=== PATIENT | male | born 1960 | race Caucasian/White ===

== ENCOUNTER 2016-07-02 11:45 | Inpatient (IN) | payer SELFPAY ==
[2016-07-02] MEDS ORDERED: Lasix 40 MG/4 ML IV ONE (11:52)
[2016-07-02] MEDS ORDERED: ROCEPHIN 1 Gm-D5w 50 ml Bag** 50 ML IV ONE ×2 (11:52→12:03)
[2016-07-02] MEDS ORDERED: DUONEB 0.5-3 MG/3 ml Neb IH ONE ×3 (11:52→16:10)
[2016-07-02] MEDS ORDERED: solu-MEDROL 125 MG IV ONE (11:52)
[2016-07-02] MEDS ORDERED: Sodium Chloride 0.9% 1000 ML 1,000 ML IV STA ×2 (11:52→15:11)
--- NOTE | 2016-07-02 12:00 | ERPHSYRPT ---
- History of Present Illness Time Seen by Provider: 07/02/16 11:52 Source: patient, family Exam Limitations: clinical condition (dyspnea) Physician History: 1 week history of progressive shortness of breath a and cough; decreased appetite and not eating or drinking; no travel; he has been exposed to other peopl with respiratory problems with unknown diagnosis; no vomiting; some muscle aches; nonproductive cough; history of emphysema Timing/Duration: today (Worse), week(s) (1 onset) Activities at Onset: rest Severity of Dyspnea-Max: severe Severity of Dyspnea-Current: severe Possible Cause: occasional episodes Modifying Factors: Improves With: coughing, deep breath Associated Symptoms: constant, cough, chest pain/discomfort, fever, loss of appetite, wheezing, weakness, chills, heart racing, painful breathing, productive cough International travel in last 2 weeks: No Allergies/Adverse Reactions: azithromycin [From scoo mobility] Adverse Reaction (Verified 07/02/16 11:56) Home Medications: Albuterol 2.5 mg/3 ml Neb [Proventil 2.5 mg/3 ml Neb] 1 neb IH Q4H [History] Fluticasone/Salmeterol 500/50* [Advair 500-50 Diskus] 1 puff IH BID 09/17/15 [History] Budesonide/Formoterol Fumarate [Symbicort 160-4.5 Mcg Inhaler] 10.2 gm IH BID [History] Hx Tetanus, Diphtheria Vaccination/Date Given: Yes Hx Influenza Vaccination/Date Given: No Hx Pneumococcal Vaccination/Date Given: No - Review of Systems Constitutional: Fever, Chills, Weakness, Weight Loss Eyes: No Symptoms Ears, Nose, & Throat: Throat Pain, Painful Swallowing, No Ear Pain, No Epistaxis , No Mouth Pain Respiratory: Cough, Dyspnea, Dyspnea on Exertion (MCCRARY), Wheezing Cardiac: Chest Pain (with cough and respirations), Palpitations, No Edema, No Syncope Abdominal/Gastrointestinal: No Abdominal Pain, No Nausea, No Vomiting, No Diarrhea Genitourinary Symptoms: No Symptoms Musculoskeletal: Arthralgias, Myalgias, No Neck Pain, No Fall, No Joint Redness Skin: No Symptoms Neurological: No Symptoms Psychological: No Symptoms Endocrine: No Symptoms Hematologic/Lymphatic: No Symptoms Immunological/Allergic: No Symptoms - Past Medical History Pertinent Past Medical History: Yes Neurological History: No Pertinent History ENT History: No Pertinent History Cardiac History: No Pertinent History Respiratory History: Bronchitis, COPD Endocrine Medical History: No Pertinent History Musculoskeletal History: No Pertinent History GI Medical History: No Pertinent History History: No Pertinent History Psycho-Social History: No Pertinent History Male Reproductive Disorders: No Pertinent History Other Medical History: BREATHES IN A LOT OF WELDING FUMES-HAS NOT BEEN TO THE DOCTOR FOR OVER 25 YEARS - Past Surgical History Past Surgical History: No Neuro Surgical History: No Pertinent History Cardiac: No Pertinent History Respiratory: No Pertinent History Gastrointestinal: No Pertinent History Genitourinary: No Pertinent History Musculoskeletal: No Pertinent History Male Surgical History: No Pertinent History - Social History Smoking Status: Current every day smoker How long have you smoked: YRS Exposure to second hand smoke: Yes Alcohol Use: None Drug Use: none Patient Lives Alone: No Significant Family History: heart disease, hypertension - Nursing Vital Signs Nursing Vital Signs: Initial Vital Signs Temperature 104.4 F Temperature Source Rectal Pulse Rate 122 Respiratory Rate 20 Blood Pressure [] 110/54 Pain Intensity 0 - Physical Exam General Appearance: severe distress (respiratory), alert, anxiety, thin Eye Exam: PERRL/EOMI, other (Vision okay), No photophobia Ears, Nose, Throat Exam: hearing grossly normal, normal pharynx (Inflamed pharynx), pharyngeal erythema, No normal ENT inspection (Very dry mucous membranes) Neck Exam: normal inspection, non-tender, supple, full range of motion, No meningismus, No carotid bruit, No JVD, No lymphadenopathy (R) Respiratory Exam: respiratory distress, airway intact, diminished breath sounds , accessory muscle use, crackles/rales, rhonchi, wheezing, No normal breath sounds, No chest tenderness, No lungs clear, No pleural rub Cardiovascular/Chest Exam: regular rate/rhythm, normal peripheral pulses, tachycardia (132), No murmur, No edema, No JVD, No friction rub Abdominal/Gastrointestinal Exam: soft, normal bowel sounds, No tenderness, No guarding, No rebound, No organomegaly Rectal Exam: deferred Extremity Exam: non-tender, normal range of motion, normal inspection, no calf tenderness, no pedal edema Peripheral Pulses Exam: carotid (R): 4+, carotid (L): 4+, femoral (R): 4+, femoral (L): 4+, dorsalis-pedis (R): 3+, dorsalis-pedis (L): 3+ Neurologic Exam: alert, oriented x 3, cooperative, 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 mass), Pneumonia (righ lateral lung field), Other ( copd with blebs) - CT Exams Chest CT Interpretation: Tele-radiologist Report, No PE, Pneumonia Ordered Tests: Active Orders 24 hr Category Date Time Status K 9 Police Officer STAT Care 07/02/16 11:52 Active EKG-ER Only STAT Care 07/02/16 11:52 Active IV Insertion STAT Care 07/02/16 11:52 Active Pulse Oximetry (ED) STAT Care 07/02/16 11:52 Active Rectal Temperature STAT Care 07/02/16 11:52 Active CHEST 1 VIEW (PORTABLE) Stat Exams 07/02/16 11:53 Completed CHEST WITH CONTRAST [CT] Stat Exams 07/02/16 12:48 Completed BLOOD CULTURE Stat Lab 07/02/16 12:10 Received CBC W DIFF Stat Lab 07/02/16 12:00 Completed CMP Stat Lab 07/02/16 12:00 Completed CULTURE, THROAT Stat Lab 07/02/16 12:10 Received CULTURE,SPUTUM Stat Lab 07/02/16 12:27 Received CULTURE,URINE Stat Lab 07/02/16 11:53 Ordered D-DIMER QUANTITATION Stat Lab 07/02/16 12:00 Completed Lactic Acid Urgent Lab 07/02/16 12:15 Completed MAGNESIUM Stat Lab 07/02/16 12:00 Completed Manual Differential NC Stat Lab 07/02/16 12:00 Completed NT PRO BNP Stat Lab 07/02/16 12:00 Completed PROTIME WITH INR Stat Lab 07/02/16 12:00 Completed STREP SCREEN-BETA A Stat Lab 07/02/16 12:10 Completed TROPONIN Stat Lab 07/02/16 12:00 Completed UA W/ MICROSCOPIC Stat Lab 07/02/16 11:53 Completed Peak Expiratory Flow Rate ONCE RT 07/02/16 11:52 Completed Respiratory Nebulizer STAT RT 07/02/16 11:54 Completed Medication Summary Discontinued Medications Generic Name Dose Route Start Last Admin Trade Name Freq PRN Reason Stop Dose Admin Acetaminophen 975 mg 07/02/16 12:22 07/02/16 13:21 Feverall 650 Mg NM 07/02/16 12:23 975 mg STAT ONE Administration Acetaminophen Confirm 07/02/16 12:25 Feverall 650 Mg Administered 07/02/16 12:26 Dose 650 mg .ROUTE .STK-MED ONE Acetaminophen Confirm 07/02/16 12:26 Feverall 325 Mg Administered 07/02/16 12:27 Dose 325 mg .ROUTE .STK-MED ONE Albuterol/Ipratropium 3 ml 07/02/16 11:52 07/02/16 12:25 Duoneb 0.5-3 Mg/3 Ml Neb IH 07/02/16 11:53 3 ml STAT ONE Administration Albuterol/Ipratropium Confirm 07/02/16 12:19 Duoneb 0.5-3 Mg/3 Ml Neb Administered 07/02/16 12:20 Dose 3 ml IH .STK-MED ONE Enoxaparin Sodium 68 mg 07/02/16 12:52 07/02/16 13:24 Enoxaparin Sodium SQ 07/02/16 12:53 68 mg STAT ONE Administration Enoxaparin Sodium Confirm 07/02/16 13:22 Enoxaparin Sodium Administered 07/02/16 13:23 Dose 80 mg SQ .STK-MED ONE Furosemide 40 mg 07/02/16 11:52 07/02/16 12:10 Lasix 40 Mg/4 Ml IV 07/02/16 11:53 40 mg STAT ONE Administration Furosemide Confirm 07/02/16 12:02 Lasix 40 Mg/4 Ml Administered 07/02/16 12:03 Dose 40 mg .ROUTE .STK-MED ONE Ceftriaxone Sodium/Dextrose 50 mls @ 100 mls/hr 07/02/16 11:52 07/02/16 12:11 Rocephin 1 Gm-D5w 50 Ml Bag IV 07/02/16 12:21 100 mls/hr STAT ONE Administration Sodium Chloride 1,000 mls @ 999 mls/hr 07/02/16 11:52 07/02/16 12:12 Sodium Chloride 0.9% 1000 Ml IV 07/02/16 12:52 999 mls/hr .Q1H1M STA Administration Sodium Chloride Confirm 07/02/16 12:03 Sodium Chloride 0.9% 1000 Ml Administered 07/02/16 12:04 Dose 1,000 mls @ ud .ROUTE .STK-MED ONE Ceftriaxone Sodium/Dextrose Confirm 07/02/16 12:03 Rocephin 1 Gm-D5w 50 Ml Bag Administered 07/02/16 12:04 Dose 50 mls @ ud IV .STK-MED ONE Methylprednisolone Sodium Succinate 125 mg 07/02/16 11:52 07/02/16 12:12 Solu-Medrol 125 Mg IV 07/02/16 11:53 125 mg STAT ONE Administration Methylprednisolone Sodium Succinate Confirm 07/02/16 12:02 Solu-Medrol 125 Mg Administered 07/02/16 12:03 Dose 125 mg .ROUTE .STK-MED ONE Lab/Rad Data: Laboratory Result Diagrams 07/02/16 12:00 07/02/16 12:00 Laboratory Results 07/02/16 07/02/16 07/02/16 Range/Units 12:15 12:10 12:00 WBC (4.0-10.5) K/mm3 RBC (4.1-5.6) M/mm3 Hgb (12.5-18.0) gm/dl Hct (42-50) % MCV (78-100) fl MCH (26-32) pg MCHC (32-36) g/dl RDW (11.5-14.0) % Plt Count (150-450) K/mm3 MPV (6-9.5) fl Gran % (36.0-66.0) % Lymphocytes % (24.0-44.0) % Monocytes % (0.0-12.0) % Eosinophils % (0.00-5.0) % Basophils % (0.0-0.4) % Segmented Neutrophils (36.-66.) % Lymphocytes (Manual) (24-44) % Monocytes (Manual) (0.0-12.0) % Basophils # (0-0.4) Differential Comment Toxic Granulation Platelet Estimate (NORMAL) Anisocytosis INR 1.58 (0.8-3.0) D-Dimer 1.676 H* (0.00-0.49) mg/L Sodium (136-145) mEq/L Potassium (3.5-5.1) mEq/L Chloride (98-107) mEq/L Carbon Dioxide (21-32) mEq/L Anion Gap (5-15) MEQ/L BUN (9-20) mg/dL Creatinine (0.55-1.30) mg/dl Estimated GFR ML/MIN Glucose (70-110) MG/DL Lactic Acid 3.1 H (0.4-2.0) Calcium (8.5-10.1) mg/dL Magnesium (1.8-2.4) mg/dL Total Bilirubin (0.2-1.0) mg/dL AST (15-37) U/L ALT (12-78) U/L Alkaline Phosphatase (46-116) U/L Troponin I (0.000-0.056) ng/ml NT-Pro-B Natriuret Pep (0-125) pg/ml Serum Total Protein (6.4-8.2) gm/dL Albumin (3.4-5.0) g/dL Ur Collection Type Urine Color (YELLOW) Urine Appearance (CLEAR) Urine pH (5-6) Ur Specific [place] (1.005-1.025) Urine Protein (Negative) Urine Glucose (UA) (NEGATIVE) mg/dL Urine Ketones (NEGATIVE) Urine Nitrite (NEGATIVE) Urine Bilirubin (NEGATIVE) Urine Urobilinogen (0-1) mg/dL Urine WBC (Auto) (NEGATIVE) Urine RBC (Auto) (0-5) Arsh/ul Urine Microscopic RBC (0-2) /HPF Urine Microscopic WBC (0-5) /HPF Ur Epithelial Cells (FEW) /HPF Urine Bacteria (NEGATIVE) /HPF Streptococcus Screen NEGATIVE (Negative) Resp Infection Panel (Negative) Specimen Received 07/02/16 07/02/16 07/02/16 Range/Units 12:00 12:00 11:53 WBC 22.3 H (4.0-10.5) K/mm3 RBC 5.15 (4.1-5.6) M/mm3 Hgb 11.4 L (12.5-18.0) gm/dl Hct 36.6 L (42-50) % MCV 71.1 L (78-100) fl MCH 22.1 L (26-32) pg MCHC 31.1 L (32-36) g/dl RDW 18.0 H (11.5-14.0) % Plt Count 461 H (150-450) K/mm3 MPV 9.1 (6-9.5) fl Gran % 95.9 H (36.0-66.0) % Lymphocytes % 1.5 L (24.0-44.0) % Monocytes % 2.6 (0.0-12.0) % Eosinophils % 0.0 (0.00-5.0) % Basophils % 0.0 (0.0-0.4) % Segmented Neutrophils 97 H (36.-66.) % Lymphocytes (Manual) 2 L (24-44) % Monocytes (Manual) 1 (0.0-12.0) % Basophils # 0.01 (0-0.4) Differential Comment ABNORMAL Toxic Granulation 1+ Platelet Estimate NORMAL (NORMAL) Anisocytosis 1+ INR (0.8-3.0) D-Dimer (0.00-0.49) mg/L Sodium 127 L (136-145) mEq/L Potassium 3.6 (3.5-5.1) mEq/L Chloride 85 L (98-107) mEq/L Carbon Dioxide 30.3 (21-32) mEq/L Anion Gap 14.9 (5-15) MEQ/L BUN 15 (9-20) mg/dL Creatinine 1.13 (0.55-1.30) mg/dl Estimated GFR > 60 ML/MIN Glucose 139 H (70-110) MG/DL Lactic Acid (0.4-2.0) Calcium 10.0 (8.5-10.1) mg/dL Magnesium 1.9 (1.8-2.4) mg/dL Total Bilirubin 0.3 (0.2-1.0) mg/dL AST 37 (15-37) U/L ALT 10 L (12-78) U/L Alkaline Phosphatase 187 H (46-116) U/L Troponin I < 0.017 (0.000-0.056) ng/ml NT-Pro-B Natriuret Pep 551 H (0-125) pg/ml Serum Total Protein 9.4 H (6.4-8.2) gm/dL Albumin 2.3 L (3.4-5.0) g/dL Ur Collection Type VOID Urine Color YELLOW (YELLOW) Urine Appearance CLEAR (CLEAR) Urine pH 6.0 (5-6) Ur Specific [place] 1.010 (1.005-1.025) Urine Protein 30 (Negative) Urine Glucose (UA) NEGATIVE (NEGATIVE) mg/dL Urine Ketones NEGATIVE (NEGATIVE) Urine Nitrite NEGATIVE (NEGATIVE) Urine Bilirubin NEGATIVE (NEGATIVE) Urine Urobilinogen 0.2 (0-1) mg/dL Urine WBC (Auto) NEGATIVE (NEGATIVE) Urine RBC (Auto) MODERATE (0-5) Arsh/ul Urine Microscopic RBC 2-5 (0-2) /HPF Urine Microscopic WBC 0-2 (0-5) /HPF Ur Epithelial Cells RARE (FEW) /HPF Urine Bacteria RARE (NEGATIVE) /HPF Streptococcus Screen (Negative) Resp Infection Panel (Negative) Specimen Received 07/02/16 1240 07/02/16 Range/Units 11:52 WBC (4.0-10.5) K/mm3 RBC (4.1-5.6) M/mm3 Hgb (12.5-18.0) gm/dl Hct (42-50) % MCV (78-100) fl MCH (26-32) pg MCHC (32-36) g/dl RDW (11.5-14.0) % Plt Count (150-450) K/mm3 MPV (6-9.5) fl Gran % (36.0-66.0) % Lymphocytes % (24.0-44.0) % Monocytes % (0.0-12.0) % Eosinophils % (0.00-5.0) % Basophils % (0.0-0.4) % Segmented Neutrophils (36.-66.) % Lymphocytes (Manual) (24-44) % Monocytes (Manual) (0.0-12.0) % Basophils # (0-0.4) Differential Comment Toxic Granulation Platelet Estimate (NORMAL) Anisocytosis INR (0.8-3.0) D-Dimer (0.00-0.49) mg/L Sodium (136-145) mEq/L Potassium (3.5-5.1) mEq/L Chloride (98-107) mEq/L Carbon Dioxide (21-32) mEq/L Anion Gap (5-15) MEQ/L BUN (9-20) mg/dL Creatinine (0.55-1.30) mg/dl Estimated GFR ML/MIN Glucose (70-110) MG/DL Lactic Acid (0.4-2.0) Calcium (8.5-10.1) mg/dL Magnesium (1.8-2.4) mg/dL Total Bilirubin (0.2-1.0) mg/dL AST (15-37) U/L ALT (12-78) U/L Alkaline Phosphatase (46-116) U/L Troponin I (0.000-0.056) ng/ml NT-Pro-B Natriuret Pep (0-125) pg/ml Serum Total Protein (6.4-8.2) gm/dL Albumin (3.4-5.0) g/dL Ur Collection Type Urine Color (YELLOW) Urine Appearance (CLEAR) Urine pH (5-6) Ur Specific [place] (1.005-1.025) Urine Protein (Negative) Urine Glucose (UA) (NEGATIVE) mg/dL Urine Ketones (NEGATIVE) Urine Nitrite (NEGATIVE) Urine Bilirubin (NEGATIVE) Urine Urobilinogen (0-1) mg/dL Urine WBC (Auto) (NEGATIVE) Urine RBC (Auto) (0-5) Arsh/ul Urine Microscopic RBC (0-2) /HPF Urine Microscopic WBC (0-5) /HPF Ur Epithelial Cells (FEW) /HPF Urine Bacteria (NEGATIVE) /HPF Streptococcus Screen (Negative) Resp Infection Panel NEGATIVE (Negative) Specimen Received reviewed - Progress Progress: improved (slight with meds and IV fluis and treatment), re-examined ( after IV fluids meds and respirator) Air Movement: poor Progress Note: 07/02/16 12:01 EKG done; IV started; lab and x-ray pending; will get peak flow was given DuoN WITH STEROIDS AND RECHECK: SIGNIFICANT OTHER AT BEDSIDE 07/02/16 12:25 LActate 3.1- givning aTBs and IV fluid boluses; CXR shows infiltrate/pnuemonia/ Mass right lateral lung field and COPD; temp 104.4 rectally- will give tylenol; ; peak flow 260 pre; getting treatment now will get post after 07/02/16 12:35 strep neg; peak flow after = 350; some improvement clinically but still in distress; notified would admit 07/02/16 12:49 elevated WBC at 22.2 and D Dimer at 1.67; will continue IV fluids ATBS and get a CT; patient continues to improve slightly; 07/02/16 13:01 BS up 139; renal fx ok; low NA 127; alk phos up 187; Trop ok; pBNP up 551 07/02/16 14:03 patient continues to imporve; CT neg for PE; patient given results; will consult with DR Sena for disposition 07/02/16 14:18 patient continues to improve; Dr Theodore De Dios consulted and will admit; patient notified of results and plan Blood Culture(s) Obtained: Yes Antibiotics given: Yes Discussed with : Fredo Washburn (consulted adn will admit) Will see patient in: hospital (full admit) Counseled pt/family regarding: lab results, diagnosis, need for follow-up, rad results, smoking cessation - Departure Time of Disposition: 14:20 Departure Disposition: In-patient Admission Clinical Impression: COPD (chronic obstructive pulmonary disease), Abscess of middle lobe of right lung with pneumonia, Sepsis, FUO (fever of unknown origin), Hyponatremia Condition: Serious Critical Care Time: Yes Critical Care Time(excluding separately billable procedures): 30-74 minutes Referrals: HERON SENA MD [Primary Care Provider] - Instructions: Chronic Obstructive Pulmonary Disease
[2016-07-02] MEDS ORDERED: solu-MEDROL 125 MG ONE (12:02)
[2016-07-02] MEDS ORDERED: Lasix 40 MG/4 ML ONE (12:02)
[2016-07-02] MEDS ORDERED: Sodium Chloride 0.9% 1000 ML 1,000 ML ONE ×3 (12:03→15:07)
[2016-07-02 12:17] LABS: Granulocytes % 95.9 % (36.0-66.0); Lymphocytes % 1.5 % (24.0-44.0); Mean Cell Volume 71.1 fl (78-100); Mean Corpuscular Hemoglobin 22.1 pg (26-32); Mean Platelet Volume 9.1 fl (6-9.5); Monocytes % 2.6 % (0.0-12.0); Platelet Count 461 K/mm3 (150-450); Red Blood Count 5.15 M/mm3 (4.1-5.6); White Blood Count 22.3 K/mm3 (4.0-10.5)
[2016-07-02] MEDS ORDERED: FEVERALL 650 MG PR ONE (12:22)
[2016-07-02] MEDS ORDERED: FEVERALL 650 MG ONE (12:25)
[2016-07-02] MEDS ORDERED: FEVERALL 325 MG ONE (12:26)
[2016-07-02 12:37] LABS: INR 1.58 (0.8-3.0); PROTIME 17.5 SECONDS (8.83-12.87)
--- NOTE | 2016-07-02 12:38 | XRAY ---
Indication: Short of breath. Fever. Comparison: September 17, 2015 Portable chest again demonstrates bilateral bullous emphysema with biapical fibrosis/scarring. New moderate-sized focus of peripheral consolidating airspace disease in the right midlung. Also new 3 cm ovoid opacity in the left suprahilar region, either infiltrate versus atelectasis versus mass. Heart is not enlarged. Bony thorax intact. Impression: 1. New right mid lung peripheral consolidating airspace disease. 2. New left suprahilar ovoid opacity, infiltrate versus atelectasis versus mass. 3. Stable bullous emphysema with biapical fibrosis/scarring.
[2016-07-02 12:39] LABS: ANISOCYTOSIS 1+; Platelet Estimate NORMAL (NORMAL); Total Cells Counted 100; Toxic Granulation 1+
[2016-07-02] MEDS ORDERED: ENOXAPARIN SODIUM SQ ONE ×2 (12:52→13:22)
[2016-07-02 12:54] LABS: ALBUMIN 2.3 g/dL (3.4-5.0); ALKALINE PHOSPHATASE 187 U/L (46-116); ANION GAP 14.9 MEQ/L (5-15); BILIRUBIN,TOTAL 0.3 mg/dL (0.2-1.0); BLOOD UREA NITROGEN 15 mg/dL (9-20); CHLORIDE 85 mEq/L (98-107); Carbon Dioxide 30.3 mEq/L (21-32); Glucose 139 MG/DL (70-110); MAGNESIUM 1.9 mg/dL (1.8-2.4); Potassium 3.6 mEq/L (3.5-5.1); SGOT/AST 37 U/L (15-37); SGPT/ALT 10 U/L (12-78); SODIUM 127 mEq/L (136-145); TROPONIN < 0.017 ng/ml (0.000-0.056); Total Protein 9.4 gm/dL (6.4-8.2)
[2016-07-02 13:00] LABS: Bacteria RARE /HPF (NEGATIVE); COMPLETE URINE MICROSCOPIC? YES; Collection Type VOID; Epithelial Cells RARE /HPF (FEW); WBC 0-2 /HPF (0-5)
--- NOTE | 2016-07-02 13:56 | XRAY ---
Indication: Short of breath. Elevated d-dimer. Multiple contiguous axial images obtained through the chest using 80 cc Isovue 370 contrast and PE protocol. Comparison: March 11, 2015 There is good opacification of the pulmonary arteries to include the lobar and segmental branches. No filling defect or pulmonary embolus. Heart is not enlarged. Aorta again minimally calcified without aneurysm/dissection. No pathologic mediastinal/hilar lymphadenopathy. Examination of the lung parenchyma again demonstrates pulmonary emphysema with large bilateral upper lung thick-walled cavitary lesions with tiny fluid leveling. Previous left mid to upper lung airspace opacities have dramatically improved with small focus of residual/recurrent consolidating opacity in the suprahilar region. New moderate-sized consolidating airspace disease in the anterolateral right lower lobe. Several scattered subcentimeter nodular densities seen throughout both lungs, largest in the left lower lobe measuring 8 mm, previously obscured. No effusion. Bony thorax intact. Limited upper abdomen demonstrates stable left lobe hepatic cysts. Impression: 1. Negative for pulmonary embolus. 2. New right lower lobe consolidating airspace disease corresponding to the radiographic finding. Previous left lung airspace disease has markedly improved with small focus of suprahilar residual/recurrent opacity. 3. Again several indeterminant bilateral subcentimeter nodular densities previously obscured. These have increased in number since a earlier CT chest of August 05, 2012. 4. Stable pulmonary emphysema and large bilateral thick-walled cavitary lesions. 5. Stable hepatic cyst. CT DI 10.30
[2016-07-02] MEDS: DUONEB 0.5-3 MG/3 ml Neb IH SCH ×3 (16:14→23:02)
[2016-07-02] MEDS ORDERED: TYLENOL 325 MG PO PRN (16:16)
[2016-07-02] MEDS: Sodium Chloride 0.9% 1000 ML 1,000 ML IV SCH (16:20)
[2016-07-02] MEDS: solu-MEDROL 125 MG IV SCH ×2 (17:27→23:12)
[2016-07-02] MEDS ORDERED: Advair Hfa 115/21 Common canister IH SCH (19:00)
[2016-07-03] MEDS: Sodium Chloride 0.9% 1000 ML 1,000 ML IV SCH ×2 (00:03→08:05)
[2016-07-03] MEDS: DUONEB 0.5-3 MG/3 ml Neb IH SCH ×6 (03:14→22:51)
[2016-07-03] MEDS: solu-MEDROL 125 MG IV SCH ×4 (05:39→23:46)
[2016-07-03 05:45] LABS: Mean Cell Volume 72.1 fl (78-100); Mean Platelet Volume 9.1 fl (6-9.5); Platelet Count 424 K/mm3 (150-450); Red Blood Count 4.05 M/mm3 (4.1-5.6); Red Cell Distribution Width 17.6 % (11.5-14.0); White Blood Count 14.1 K/mm3 (4.0-10.5)
[2016-07-03] MEDS ORDERED: ENOXAPARIN SODIUM SQ SCH (06:00)
[2016-07-03 06:13] LABS: ALBUMIN 1.7 g/dL (3.4-5.0); ALKALINE PHOSPHATASE 127 U/L (46-116); BILIRUBIN,TOTAL 0.2 mg/dL (0.2-1.0); BLOOD UREA NITROGEN 15 mg/dL (9-20); CHLORIDE 97 mEq/L (98-107); Carbon Dioxide 30.4 mEq/L (21-32); Glucose 194 MG/DL (70-110); Potassium 3.1 mEq/L (3.5-5.1); SGOT/AST 25 U/L (15-37); SGPT/ALT 8 U/L (12-78); SODIUM 135 mEq/L (136-145); Total Protein 7.1 gm/dL (6.4-8.2)
[2016-07-03] MEDS ORDERED: PATIENT OWN MEDICATION IH SCH (07:00)
[2016-07-03 07:13] LABS: Mean Corpuscular Hemoglobin 21.9 pg (26-32)
[2016-07-03] MEDS ORDERED: ROCEPHIN 1 Gm-D5w 50 ml Bag** 50 ML IV SCH (10:00)
[2016-07-03] MEDS ORDERED: Protonix 40MG Tablet PO SCH (10:00)
[2016-07-03] MEDS ORDERED: NON-FORMULARY ITEM (Budesonide/Formoterol Fumarate [Symbicort 160-4.5 Mcg Inhaler] 10.2 GM IH SCH (10:00)
[2016-07-03] MEDS ORDERED: Lasix 20 MG/2 ML IV SCH (10:00)
--- NOTE | 2016-07-03 10:53 | XRAY ---
Indication: Elevated d-dimer. Two-dimensional sonogram and color Doppler imaging of the major venous vessels of the left and right leg was performed. Comparison: None No thrombus seen in the examined deep venous vessels of the left and right leg including greater saphenous veins. Veins demonstrate normal compressibility. Venous waveforms are normal with and without augmentation. Impression: Left and right leg negative for DVT.
[2016-07-03 14:50] LABS: A-aADO2 19; ARTERIAL BLD GAS O2 SATURATION 98.4 % (95-100); ARTERIAL BLOOD GAS BASE EXCESS 6.4 (-2.0-2.0); ARTERIAL BLOOD GAS FIO2 21 %; ARTERIAL BLOOD GAS PO2 79 mmHg (75-100)
[2016-07-03 14:51] LABS: ARTERIAL BLOOD GAS pH 7.48 (7.35-7.45)
[2016-07-03] MEDS: Lasix 20 MG/2 ML IV SCH (15:10)
[2016-07-03] MEDS: Protonix 40MG Tablet PO SCH (15:10)
[2016-07-03] MEDS: Dextrose 5% -0.45 NaCl 1000 ML 1,000 ML IV SCH (15:15)
[2016-07-03] MEDS: LEVAQUIN 750 MG/150 ML IV SCH (15:19)
[2016-07-03] MEDS: D5W IV SCH (15:19)
[2016-07-03] MEDS: POTASSIUM CHLORIDE 20 mEq IN WATER 100ML 100 ML IV SCH ×2 (15:20→20:33)
--- NOTE | 2016-07-03 15:27 | HP ---
HISTORY OF PRESENT ILLNESS: Mr. Lee is a 55 y/o male with past medical history of chronic obstructive pulmonary disease. He presented to ear yesterday with increasing shortness of breath, productive cough, high grade fever, poor appetite, and generalized achiness. Also, he had reported some chills and increased fatigue. Upon initial evaluation in Emergency Room, he was noted to have BP of 110/54, heart rate 122, respiratory rate 20, temperature 104.4. After initial work-up, he was treated with Tylenol 975 mg X 1, albuterol and Atrovent nebulizations, Lovenox 68 mg subq X 1, Lasix 40 mg IV X 1, Rocephin 1 Gm IV X 1, NS, Solu-Medrol 125 mg IV X 1. Subsequently, he was admitted to the medical floor for further monitoring and management. Since admission, he was continued on IV antibiotics/IV steroids. At the time of this evaluation, he is alert, awake, and comfortable. Still having some shortness of breath, productive cough, and generalized chest tightness. Complains of fatigue. Feels somewhat better than yesterday. PAST MEDICAL HISTORY: As noted above. PAST SURGICAL HISTORY: Noncontributory. FAMILY HISTORY: History of heart disease and hypertension in family members. SOCIAL HISTORY: Patient is active smoker. Also, has history of exposure to secondhand smoke. Denies alcohol abuse or illicit drug use. 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 ALLERGIES: ZITHROMAX. CURRENT MEDICATIONS: Home medications were reviewed. REVIEW OF SYSTEMS: PHYSICAL EXAMINATION: Middle-aged cachectic male lying comfortably in bed. Not in acute distress. VITAL SIGNS: BP 94/53, heart rate 94, respiratory rate 20, temperature 97.6, temperature maximum 104.4, O2 saturations of 95% on room air. HEENT: Normocephalic. Pallor present. NECK: No JVD present. CVS: S1 and S2 present. RESPIRATORY: Breath sounds bilaterally diminished. Bilateral rhonchi present. ABDOMEN: Soft, nontender. NEURO: He is alert and oriented X 3. EXTREMITIES: Reveals no edema on bilateral lower extremities. LABORATORY DATA: Labs on admission were notable for CBC with WBC of 22.3, Hgb 11.4, Hct 36.6, MCV 71, platelets 461. D-dimer was 1.676. INR 1.58. Initial CMP was notable for sodium of 127, chloride 85, glucose 139. Alk. phos. 187, lactic acid was 3.1. NT Pro BNP was 551. Troponin was less than 0.017. Today's CMP is notable for potassium 3.1, chloride 97, glucose 194, Alk. phos. 127. Today's CBC shows WBC of 14.1, Hgb 8.9, Hct 29.2, platelets 424. UA from yesterday showed rare epithelial cells, rare bacteria, and presence of protein. Strep screen is negative. Chest x-ray on admission showed new right midlung peripheral consolidating air space disease, new left suprahilar ovoid opacity - infiltrate vs atelectasis vs mass, stable bullous emphysema with biapical fibrosis/scarring. Chest CT from yesterday showed negative for pulmonary embolus, new right lower lobe consolidating air space disease, improvement of previous left lung air space disease with small focal suprahilar residual/recurrent opacity, several indeterminate bilateral subcentimeter nodular densities throughout both lungs, largest in left lower lobe measuring 8 mm, stable pulmonary emphysema, large bilateral thick-walled cavitary lesions, and stable hepatic cyst. Blood cultures from 07/02/16 are pending. Urine cultures from 07/02/16 showed less than 10,000 normal clarisa, probable skin contaminant. Sputum culture is pending also. Venous Doppler of bilateral lower extremities had revealed no deep vein thrombosis. EKG had shown sinus tachycardia at 130 beats/minute, normal interval, normal QRS, nonspecific ST-T changes per Emergency Room records. Medications were reviewed. ASSESSMENT: 55 y/o male with impression: 1. PNEUMONIA. 2. CHRONIC OBSTRUCTIVE PULMONARY DISEASE WITH EXACERBATION. 3. CONGESTIVE HEART FAILURE. 4. ABNORMAL CHEST CT (NEW RIGHT LOWER LOBE CONSOLIDATING AIR SPACE DISEASE, RESIDUAL LEFT LUNG AIR SPACE DISEASE, SEVERAL INDETERMINANT BILATERAL SUBCENTIMETER NODULAR DENSITIES, PULMONARY EMPHYSEMA, LARGE BILATERAL THICK-WALLED CAVITARY LESIONS). 5. HYPOKALEMIA. 6. FATIGUE. 7. ANEMIA. PLAN: 1. Patient is admitted for further monitoring and management. 2. Continue to monitor hemodynamic status. 3. Follow-up CBC, electrolytes, cultures, and chest x-ray. 4. In view of patient's above findings, will change antibiotics to broader spectrum IV antibiotics. Continue IV steroids. 5. Will discuss with pulmonary regarding abnormalities on chest x-ray. 6. Will obtain baseline arterial blood gas. 7. Continue diuretics. 8. Since patient's work-up for elevated d-dimer is negative, will scale back Lovenox to 40 mg daily. 9. Will obtain stool heme-occult. The patient's clinical condition, work-up results, and plan of management were discussed with patient and . They seem to be in understanding and agreement.
[2016-07-03] MEDS: Zosyn 3.375GM/100 Ml D5W 100 ML IV SCH ×2 (19:00→23:46)
[2016-07-04] MEDS: DUONEB 0.5-3 MG/3 ml Neb IH SCH ×6 (03:15→22:44)
[2016-07-04] MEDS: PATIENT OWN MEDICATION PO SCH ×3 (05:29→18:40)
[2016-07-04] MEDS: Zosyn 3.375GM/100 Ml D5W 100 ML IV SCH ×4 (05:30→23:09)
[2016-07-04] MEDS: solu-MEDROL 125 MG IV SCH ×4 (05:30→23:09)
[2016-07-04 06:25] LABS: ALLEN TEST OK? YES
[2016-07-04 06:33] LABS: Mean Cell Volume 72.9 fl (78-100); Platelet Count 523 K/mm3 (150-450); Red Blood Count 4.09 M/mm3 (4.1-5.6)
[2016-07-04 06:35] LABS: ALBUMIN 1.8 g/dL (3.4-5.0); ALKALINE PHOSPHATASE 154 U/L (46-116); ANION GAP 3.9 MEQ/L (5-15); BILIRUBIN,TOTAL 0.1 mg/dL (0.2-1.0); BLOOD UREA NITROGEN 15 mg/dL (9-20); CHLORIDE 98 mEq/L (98-107); Carbon Dioxide 32.5 mEq/L (21-32); Glucose 177 MG/DL (70-110); Potassium 3.3 mEq/L (3.5-5.1); SGOT/AST 102 U/L (15-37); SGPT/ALT 40 U/L (12-78); SODIUM 131 mEq/L (136-145); Total Protein 7.4 gm/dL (6.4-8.2)
[2016-07-04] MEDS: LEVAQUIN 750 MG/150 ML IV SCH (08:40)
[2016-07-04] MEDS: D5W IV SCH (08:40)
[2016-07-04] MEDS: Protonix 40MG Tablet PO SCH (08:41)
[2016-07-04] MEDS: Lasix 20 MG/2 ML IV SCH (08:41)
[2016-07-04] MEDS ORDERED: ENOXAPARIN SODIUM SQ SCH (10:00)
[2016-07-04] MEDS: Dextrose 5% -0.45 NaCl 1000 ML 1,000 ML IV SCH (11:37)
--- NOTE | 2016-07-04 17:41 | PCM.NOTE ---
Date and Time: 07/04/161737 Subjective Assessment: feeling better, - Review of Systems Constitutional: No Fever, No Chills Eyes: No Symptoms Ears, Nose, & Throat: No Symptoms Respiratory: No Cough, No Short Of Breath Cardiac: No Chest Pain, No Edema, No Syncope Abdominal/Gastrointestinal: No Abdominal Pain, No Nausea, No Vomiting, No Diarrhea Genitourinary Symptoms: No Dysuria Musculoskeletal: No Back Pain, No Neck Pain Skin: No Rash Neurological: No Dizziness, No Focal Weakness, No Sensory Changes Psychological: No Symptoms Endocrine: No Symptoms Hematologic/Lymphatic: No Symptoms Immunological/Allergic: No Symptoms Objective Exam General Appearance: no apparent distress, alert Neurologic Exam: alert, oriented x 3, cooperative, normal mood/affect, nml cerebellar function, sensation nml, No motor deficits Skin Exam: normal color, warm, dry Eye Exam: PERRL, EOMI, eyes nml inspection Ears, Nose, Throat Exam: normal ENT inspection, pharynx normal, moist mucous membranes Neck Exam: normal inspection, non-tender, supple, full range of motion Respiratory Exam: diminished breath sounds, rhonchi, wheezing, No respiratory distress Cardiovascular Exam: regular rate/rhythm, normal heart sounds Gastrointestinal/Abdomen Exam: soft, No tenderness, No mass Extremity Exam: normal inspection, normal range of motion Back Exam: normal inspection, normal range of motion, No CVA tenderness, No vertebral tenderness Male Genitalia Exam: deferred Rectal Exam: deferred OBJECTIVE DATA Vital Signs: Vital Signs - 24 hr Temp Pulse Resp BP Pulse Ox 07/04/16 16:12 97.7 F 89 20 108/59 96 07/04/16 16:00 20 07/04/16 14:36 83 18 95 07/04/16 12:00 97.8 F 95 H 20 93/51 97 07/04/16 10:24 75 18 97 07/04/16 08:00 20 07/04/16 07:54 97.7 F 95 H 20 106/56 96 07/04/16 06:40 96 H 18 96 07/04/16 04:00 97.5 F 94 H 24 95 07/04/16 03:15 94 H 24 95 07/04/16 00:00 97.5 F 90 24 97/56 96 07/03/16 22:51 92 H 22 95 07/03/16 20:00 97.7 F 95 H 20 114/58 96 07/03/16 18:40 91 H 24 97 Pain Assessment - Last Documented Pain Intensity 2 Pain Scale Used 0-10 Pain Scale Intake and Output: Intake & Output 07/02/16 07/03/16 07/04/16 07/05/16 11:59 11:59 11:59 11:59 Intake Total 3179 2955 240 Output Total 1000 2600 400 Balance 2179 355 -160 Weight 59.874 kg 61.19 kg Lab Results: Lab Results-Last 24 Hours 07/03/16 07/03/16 07/04/16 Range/Units 14:26 18:00 05:41 WBC 13.0 H (4.0-10.5) K/mm3 RBC 4.09 L (4.1-5.6) M/mm3 Hgb 9.0 L 9.0 L (12.5-18.0) gm/dl Hct 29.8 L (42-50) % MCV 72.9 L (78-100) fl MCH 22.0 L (26-32) pg MCHC 30.2 L (32-36) g/dl RDW 18.0 H (11.5-14.0) % Plt Count 523 H (150-450) K/mm3 MPV 9.0 (6-9.5) fl Puncture Site RIGHT RADIAL pCO2 41 (35-45) mmHg pO2 79 (75-100) mmHg Base Excess 6.4 H (-2.0-2.0) O2 Saturation 96.1 (94-100) g/dF ABG pH 7.48 H (7.35-7.45) ABG HCO3 30.5 H* (22-28) ABG O2 Sat (Measured) 98.4 (95-100) % Ajay Test YES A-a Gradient 19 a/A Ratio 0.81 Hemoglobin 8.9 Carboxyhemoglobin 1.6 (0.0-6.9) % THgb Methemoglobin 0.7 L (1.4-1.5) % Potassium 2.9 L* (3.5-5.1) Temperature 37.0 C POC O2 Flow Rate 21 % Sodium (136-145) mEq/L Chloride (98-107) mEq/L Carbon Dioxide (21-32) mEq/L Anion Gap (5-15) MEQ/L BUN (9-20) mg/dL Creatinine (0.55-1.30) mg/dl Estimated GFR ML/MIN Glucose (70-110) MG/DL Calcium (8.5-10.1) mg/dL Total Bilirubin (0.2-1.0) mg/dL AST (15-37) U/L ALT (12-78) U/L Alkaline Phosphatase (46-116) U/L Serum Total Protein (6.4-8.2) gm/dL Albumin (3.4-5.0) g/dL Slides for Path Review YES 07/04/16 Range/Units 05:41 WBC (4.0-10.5) K/mm3 RBC (4.1-5.6) M/mm3 Hgb (12.5-18.0) gm/dl Hct (42-50) % MCV (78-100) fl MCH (26-32) pg MCHC (32-36) g/dl RDW (11.5-14.0) % Plt Count (150-450) K/mm3 MPV (6-9.5) fl Puncture Site pCO2 (35-45) mmHg pO2 (75-100) mmHg Base Excess (-2.0-2.0) O2 Saturation (94-100) g/dF ABG pH (7.35-7.45) ABG HCO3 (22-28) ABG O2 Sat (Measured) (95-100) % Ajay Test A-a Gradient a/A Ratio Hemoglobin Carboxyhemoglobin (0.0-6.9) % THgb Methemoglobin (1.4-1.5) % Potassium 3.3 L (3.5-5.1) Temperature C POC O2 Flow Rate % Sodium 131 L (136-145) mEq/L Chloride 98 (98-107) mEq/L Carbon Dioxide 32.5 H (21-32) mEq/L Anion Gap 3.9 L (5-15) MEQ/L BUN 15 (9-20) mg/dL Creatinine 0.81 (0.55-1.30) mg/dl Estimated GFR > 60 ML/MIN Glucose 177 H (70-110) MG/DL Calcium 9.4 (8.5-10.1) mg/dL Total Bilirubin 0.1 L (0.2-1.0) mg/dL AST 102 H (15-37) U/L ALT 40 (12-78) U/L Alkaline Phosphatase 154 H (46-116) U/L Serum Total Protein 7.4 (6.4-8.2) gm/dL Albumin 1.8 L (3.4-5.0) g/dL Slides for Path Review Radiology Exams: Radiology Procedures Category Date Time Status ECHO W/2D AND DOPPLER [US] Routine Exams 07/03/16 14:27 Taken VENOUS BILATERAL EXTREMITY [US] Routine Exams 07/03/16 08:00 Completed Assessment/Plan (1) COPD (chronic obstructive pulmonary disease) Current Visit: Yes Status: Acute Qualifiers: COPD type: emphysema (2) Pneumonia Current Visit: Yes Status: Acute Qualifiers: Pneumonia type: due to unspecified organism Laterality: unspecified laterality Lung location: unspecified part of lung Qualified Code(s): J18.9 - Pneumonia, unspecified organism Assessment & Plan: Last Vital Signs Temp 97.7 F 07/04/16 16:12 Pulse 89 07/04/16 16:12 Resp 20 07/04/16 16:12 BP 108/59 07/04/16 16:12 Pulse Ox 96 07/04/16 16:12 Allergies azithromycin [From Zithromax] Adverse Reaction (Verified 07/02/16 11:56) Active Medications Acetaminophen (Tylenol 325 Mg) 325 mg PO Q4H PRN PRN PRN Reason: TEMP >102 Stop: 08/01/16 16:15 Albuterol/Ipratropium (Duoneb 0.5-3 Mg/3 Ml Neb) 3 ml IH Q4HRT [facility] Stop: 08/01/16 18:59 Last Admin: 07/04/16 14:34 Dose: 3 ml Enoxaparin Sodium (Enoxaparin Sodium) 40 mg SQ DAILY [facility] Stop: 08/04/16 09:59 Furosemide (Lasix 20 Mg/2 Ml) 20 mg IV DAILY [facility] Stop: 08/02/16 14:59 Last Admin: 07/04/16 08:41 Dose: 20 mg Levofloxacin/Dextrose (Levaquin 750mg/150ml D5w) 150 mls @ 150 mls/hr IV Q24H [facility] Stop: 08/02/16 14:29 Last Admin: 07/04/16 08:40 Dose: 150 mls/hr Piperacillin Sod/Tazobactam Sod (Zosyn 3.375gm/100 Ml D5w) 100 mls @ 100 mls/ hr IV Q6HT [facility] Stop: 08/02/16 17:59 Last Admin: 07/04/16 17:38 Dose: 100 mls/hr Dextrose/Sodium Chloride (Dextrose 5% -0.45 Nacl 1000 Ml) 1,000 mls @ 75 mls/ hr IV .[id number] [facility] Stop: 08/02/16 14:29 Last Admin: 07/04/16 11:37 Dose: 75 mls/hr Methylprednisolone Sodium Succinate (Solu-Medrol 125 Mg) 80 mg IV Q6HT [facility] Stop: 08/02/16 17:59 Last Admin: 07/04/16 17:38 Dose: 80 mg Pantoprazole Sodium (Protonix 40mg Tablet) 40 mg PO DAILY [facility] Stop: 08/02/16 14:59 Last Admin: 07/04/16 08:41 Dose: 40 mg Symbicort 160/4.5 0 each PO BIDRT [facility] Stop: 08/02/16 06:59 Last Admin: 07/04/16 06:41 Dose: 2 each Intake & Output 07/04/16 07/05/16 11:59 11:59 Intake Total 2955 240 Output Total 2600 400 Balance 355 -160 Weight 61.19 kg Orders 07/04/16 11:29 Pulse Oximetry .overnight Lab Tests 07/03/16 07/03/16 07/04/16 14:26 18:00 05:41 WBC 13.0 H RBC 4.09 L Hgb 9.0 L 9.0 L Hct 29.8 L MCV 72.9 L MCH 22.0 L MCHC 30.2 L RDW 18.0 H Plt Count 523 H MPV 9.0 Puncture Site RIGHT RADIAL pCO2 41 pO2 79 Base Excess 6.4 H O2 Saturation 96.1 ABG pH 7.48 H ABG HCO3 30.5 H* ABG O2 Sat (Measured) 98.4 Ajay Test YES A-a Gradient 19 a/A Ratio 0.81 Hemoglobin 8.9 Carboxyhemoglobin 1.6 Methemoglobin 0.7 L Potassium 2.9 L* Temperature 37.0 POC O2 Flow Rate 21 Sodium Chloride Carbon Dioxide Anion Gap BUN Creatinine Estimated GFR Glucose Calcium Total Bilirubin AST ALT Alkaline Phosphatase Serum Total Protein Albumin Slides for Path Review YES 07/04/16 05:41 WBC RBC Hgb Hct MCV MCH MCHC RDW Plt Count MPV Puncture Site pCO2 pO2 Base Excess O2 Saturation ABG pH ABG HCO3 ABG O2 Sat (Measured) Ajay Test A-a Gradient a/A Ratio Hemoglobin Carboxyhemoglobin Methemoglobin Potassium 3.3 L Temperature POC O2 Flow Rate Sodium 131 L Chloride 98 Carbon Dioxide 32.5 H Anion Gap 3.9 L BUN 15 Creatinine 0.81 Estimated GFR > 60 Glucose 177 H Calcium 9.4 Total Bilirubin 0.1 L AST 102 H ALT 40 Alkaline Phosphatase 154 H Serum Total Protein 7.4 Albumin 1.8 L Slides for Path Review Microbiology 07/02/16 11:53 Clean Catch Midstream Urine Culture - Final <10K NORMAL SKIN KAL PROBABLE SKIN CONTAMINANT 07/02/16 12:27 Sputum - Expectorant Gram Stain - Final 07/02/16 12:27 Sputum - Expectorant Sputum Culture - Preliminary SENT TO REFERENCE LAB FOR IDENTIFICATION AND/OR SENSITIVITY. SEPARATE REPORT TO FOLLOW. 07/02/16 12:10 Blood Blood Culture - Preliminary NO GROWTH TO DATE 07/02/16 12:00 Blood Blood Culture - Preliminary NO GROWTH TO DATE Code(s): J18.9 - PNEUMONIA, UNSPECIFIED ORGANISM
[2016-07-05] MEDS: DUONEB 0.5-3 MG/3 ml Neb IH SCH ×3 (03:33→10:14)
[2016-07-05 04:22] VITALS: O2SAT 96
[2016-07-05] MEDS: solu-MEDROL 125 MG IV SCH ×2 (05:37→11:05)
[2016-07-05] MEDS: Zosyn 3.375GM/100 Ml D5W 100 ML IV SCH ×2 (05:37→11:05)
[2016-07-05] MEDS: PATIENT OWN MEDICATION PO SCH (07:01)
[2016-07-05] MEDS: Lasix 20 MG/2 ML IV SCH (09:46)
[2016-07-05] MEDS: Protonix 40MG Tablet PO SCH (09:47)
[2016-07-05] MEDS ORDERED: ENOXAPARIN SODIUM SQ SCH (10:00)
--- NOTE | 2016-07-05 10:15 | PCM.DS ---
Discharge Summary Date of Admission: 07/02/16 14:45 Admitting Physician: KENNETH BENSON Primary Care Provider: HERON SENA Allergies Allergies azithromycin [From Zithromax] Adverse Reaction (Verified 07/02/16 11:56) Hospital Summary - Hospital Course Hospital Course: Chief Complaint Diagnosis pneumonia. Sepsis. Allergies Allergy/AdvReac Type Severity Reaction Status Date / Time azithromycin [From Zithromax] AdvReac Verified 07/02/16 11:56 Vital Signs (Last 24 hours) Temp Pulse Resp BP Pulse Ox 07/05/16 07:46 97.7 F 95 H 20 124/63 96 07/05/16 06:58 88 18 96 07/05/16 04:00 97.5 F 98 H 24 115/61 96 07/05/16 03:35 97 H 18 94 L 07/04/16 23:21 98.3 F 93 H 22 116/59 93 L 07/04/16 22:46 94 H 18 93 L 07/04/16 22:00 91 L 07/04/16 19:55 98.0 F 98 H 21 114/60 96 07/04/16 18:46 92 H 24 94 L 07/04/16 16:12 97.7 F 89 20 108/59 96 07/04/16 16:00 20 07/04/16 14:36 83 18 95 07/04/16 12:00 97.8 F 95 H 20 93/51 97 07/04/16 10:24 75 18 97 Home Medications Medication Instructions Recorded Confirmed Last Taken Type Budesonide/Formoterol Fumarate 10.2 gm IH BID 07/02/16 07/02/16 07/02/16 History [Symbicort 160-4.5 Mcg Inhaler] Current Medications Generic Name Dose Route Start Last Admin Trade Name Freq PRN Reason Stop Dose Admin Acetaminophen 325 mg 07/02/16 16:16 Tylenol 325 Mg PO 08/01/16 16:15 Q4H PRN PRN TEMP >102 Albuterol/Ipratropium 3 ml 07/02/16 19:00 07/05/16 06:57 Duoneb 0.5-3 Mg/3 Ml Neb IH 08/01/16 18:59 3 ml Q4HRT GASTON Administration Enoxaparin Sodium 40 mg 07/05/16 10:00 07/05/16 09:46 Enoxaparin Sodium SQ 08/04/16 09:59 40 mg DAILY GASTON Administration Furosemide 20 mg 07/03/16 15:00 07/05/16 09:46 Lasix 20 Mg/2 Ml IV 08/02/16 14:59 20 mg DAILY GASTON Administration Levofloxacin/Dextrose 150 mls @ 150 mls/hr 07/03/16 14:30 07/04/16 08:40 Levaquin 750mg/150ml D5w IV 08/02/16 14:29 150 mls/hr Q24H GASTON Administration Piperacillin Sod/Tazobactam Sod 100 mls @ 100 mls/hr 07/03/16 18:00 07/05/16 05:37 Zosyn 3.375gm/100 Ml D5w IV 08/02/16 17:59 100 mls/hr Q6HT GASTON Administration Dextrose/Sodium Chloride 1,000 mls @ 75 mls/hr 07/03/16 14:30 07/04/16 11:37 Dextrose 5% -0.45 Nacl 1000 Ml IV 08/02/16 14:29 75 mls/hr .[id number] GASTON Administration Methylprednisolone Sodium Succinate 80 mg 07/03/16 18:00 07/05/16 05:37 Solu-Medrol 125 Mg IV 08/02/16 17:59 80 mg Q6HT GASTON Administration Pantoprazole Sodium 40 mg 07/03/16 15:00 07/05/16 09:47 Protonix 40mg Tablet PO 08/02/16 14:59 40 mg DAILY GASTON Administration Symbicort 160/4.5 0 each 07/03/16 07:00 07/05/16 07:01 PO 08/02/16 06:59 2 each BIDRT GASTON Administration Discontinued Medications Generic Name Dose Route Start Last Admin Trade Name Freq PRN Reason Stop Dose Admin Acetaminophen 975 mg 07/02/16 12:22 07/02/16 13:21 Feverall 650 Mg IN 07/02/16 12:23 975 mg STAT ONE Administration Acetaminophen Confirm 07/02/16 12:25 Feverall 650 Mg Administered 07/02/16 12:26 Dose 650 mg .ROUTE .STK-MED ONE Acetaminophen Confirm 07/02/16 12:26 Feverall 325 Mg Administered 07/02/16 12:27 Dose 325 mg .ROUTE .STK-MED ONE Albuterol/Ipratropium 3 ml 07/02/16 11:52 07/02/16 12:25 Duoneb 0.5-3 Mg/3 Ml Neb IH 07/02/16 11:53 3 ml STAT ONE Administration Albuterol/Ipratropium Confirm 07/02/16 12:19 Duoneb 0.5-3 Mg/3 Ml Neb Administered 07/02/16 12:20 Dose 3 ml IH .STK-MED ONE Albuterol/Ipratropium Confirm 07/02/16 16:10 Duoneb 0.5-3 Mg/3 Ml Neb Administered 07/02/16 16:11 Dose 3 ml IH .STK-MED ONE Enoxaparin Sodium 68 mg 07/02/16 12:52 07/02/16 13:24 Enoxaparin Sodium SQ 07/02/16 12:53 68 mg STAT ONE Administration Enoxaparin Sodium Confirm 07/02/16 13:22 Enoxaparin Sodium Administered 07/02/16 13:23 Dose 80 mg SQ .STK-MED ONE Enoxaparin Sodium 60 mg 07/03/16 06:00 07/03/16 07:08 Enoxaparin Sodium SQ 08/02/16 05:59 60 mg Q12H GASTON Administration Enoxaparin Sodium 40 mg 07/04/16 10:00 07/04/16 08:40 Enoxaparin Sodium SQ 08/03/16 09:59 40 mg DAILY GASTON Administration Furosemide 40 mg 07/02/16 11:52 07/02/16 12:10 Lasix 40 Mg/4 Ml IV 07/02/16 11:53 40 mg STAT ONE Administration Furosemide Confirm 07/02/16 12:02 Lasix 40 Mg/4 Ml Administered 07/02/16 12:03 Dose 40 mg .ROUTE .STK-MED ONE Furosemide 20 mg 07/03/16 10:00 07/03/16 15:13 Lasix 20 Mg/2 Ml IV 08/02/16 09:59 20 mg DAILY GASTON Administration Ceftriaxone Sodium/Dextrose 50 mls @ 100 mls/hr 07/02/16 11:52 07/02/16 12:11 Rocephin 1 Gm-D5w 50 Ml Bag IV 07/02/16 12:21 100 mls/hr STAT ONE Administration Sodium Chloride 1,000 mls @ 999 mls/hr 07/02/16 11:52 07/02/16 12:12 Sodium Chloride 0.9% 1000 Ml IV 07/02/16 12:52 999 mls/hr .Q1H1M STA Administration Sodium Chloride Confirm 07/02/16 12:03 Sodium Chloride 0.9% 1000 Ml Administered 07/02/16 12:04 Dose 1,000 mls @ ud .ROUTE .STK-MED ONE Ceftriaxone Sodium/Dextrose Confirm 07/02/16 12:03 Rocephin 1 Gm-D5w 50 Ml Bag Administered 07/02/16 12:04 Dose 50 mls @ ud IV .STK-MED ONE Sodium Chloride Confirm 07/02/16 15:05 Sodium Chloride 0.9% 1000 Ml Administered 07/02/16 15:06 Dose 1,000 mls @ ud .ROUTE .STK-MED ONE Sodium Chloride Confirm 07/02/16 15:07 Sodium Chloride 0.9% 1000 Ml Administered 07/02/16 15:08 Dose 1,000 mls @ ud .ROUTE .STK-MED ONE Sodium Chloride 1,000 mls @ 999 mls/hr 07/02/16 15:11 07/02/16 15:15 Sodium Chloride 0.9% 1000 Ml IV 07/02/16 16:11 999 mls/hr .Q1H1M STA Administration Sodium Chloride 1,000 mls @ 125 mls/hr 07/02/16 16:30 07/03/16 08:05 Sodium Chloride 0.9% 1000 Ml IV 08/01/16 16:29 125 mls/hr .Q8H GASTON Administration Ceftriaxone Sodium/Dextrose 50 mls @ 100 mls/hr 07/03/16 10:00 07/03/16 10:48 Rocephin 1 Gm-D5w 50 Ml Bag IV 08/02/16 09:59 100 mls/hr DAILY GASTON Administration Potassium Chloride 100 mls @ 50 mls/hr 07/03/16 14:30 07/03/16 20:33 Potassium Chloride 20 Meq In Water 100ml IV 07/03/16 18:29 50 mls/hr Q2H GASTON Administration Methylprednisolone Sodium Succinate 125 mg 07/02/16 11:52 07/02/16 12:12 Solu-Medrol 125 Mg IV 07/02/16 11:53 125 mg STAT ONE Administration Methylprednisolone Sodium Succinate Confirm 07/02/16 12:02 Solu-Medrol 125 Mg Administered 07/02/16 12:03 Dose 125 mg .ROUTE .STK-MED ONE Methylprednisolone Sodium Succinate 100 mg 07/02/16 18:00 07/03/16 11:42 Solu-Medrol 125 Mg IV 07/03/16 12:01 100 mg Q6HT GASTON Administration Pantoprazole Sodium 40 mg 07/03/16 10:00 07/03/16 15:13 Protonix 40mg Tablet PO 08/02/16 09:59 40 mg DAILY GASTON Administration Fluticasone/Salmeterol 2 puff 07/02/16 19:00 07/02/16 19:06 Advair Hfa 115/21 Common Canister* IH 08/01/16 18:59 2 puff BIDRT GASTON Administration Intake & Output (Last 24 hours) 07/02/16 07/03/16 07/04/16 07/05/16 11:59 11:59 11:59 11:59 Intake Total 3179 2955 2321 Output Total 1000 2600 1600 Balance 2179 355 721 Weight 68.039 kg 59.874 kg 61.19 kg 61.915 kg Microbiology Results (Last 24 hours) 07/02/16 11:53 Clean Catch Midstream Urine Culture - Final <10K NORMAL SKIN KAL PROBABLE SKIN CONTAMINANT 07/02/16 12:27 Sputum - Expectorant Gram Stain - Final 07/02/16 12:27 Sputum - Expectorant Sputum Culture - Preliminary SENT TO REFERENCE LAB FOR IDENTIFICATION AND/OR SENSITIVITY. SEPARATE REPORT TO FOLLOW. 07/02/16 12:27 Sputum - Expectorant Organism ID and Sensitivity - Pending 07/02/16 12:10 Blood - Pending 07/02/16 12:10 Blood Blood Culture - Preliminary NO GROWTH TO DATE 07/02/16 12:00 Blood - Pending 07/02/16 12:00 Blood Blood Culture - Preliminary NO GROWTH TO DATE Orders (Last 24 hours) Category Date Time Status Enoxaparin Sodium [Enoxaparin Sodium] Med 07/04/16 10:00 Discontinued 40 mg SQ DAILY Enoxaparin Sodium [Enoxaparin Sodium] Med 07/05/16 10:00 Active 40 mg SQ DAILY Pulse Oximetry .overnight RT 07/04/16 11:29 Completed Patient Care Notes (Last 24 hours) 07/05/16 09:49 Respiratory Note by Anne Dow ROOM AIR RESTING SPO2 91%. ROOM AIR AMBULATION SPO2 88%. PLACED ON N/C 2LPM DURING AMBULATION SPO2 94% Initialized on 07/05/16 09:49 - END OF NOTE 07/04/16 11:40 Nursing Note by OPAL CARRILLO Contacted Dr. Sena to update on patient. Dr. Sena gave orders to keep patient one more night and have RT so overnight pulse ox study and to qualify patient for home O2. Initialized on 07/04/16 11:40 - END OF NOTE - Vitals & Intake/Output Vital Signs: Vital Signs Temperature 97.7 F 07/05/16 07:46 Pulse Rate 95 H 07/05/16 07:46 Respiratory Rate 20 07/05/16 07:46 Blood Pressure 124/63 07/05/16 07:46 O2 Sat by Pulse Oximetry 96 07/05/16 07:46 Oxygen-Last Documented O2 Percentage 2 Liters = 28% Intake & Output: Intake & Output 07/02/16 07/03/16 07/04/16 07/05/16 11:59 11:59 11:59 11:59 Intake Total 3179 2955 2321 Output Total 1000 2600 1600 Balance 2179 355 721 Weight 59.874 kg 61.19 kg 61.915 kg - Lab Result Diagrams: 07/04/16 05:41 07/04/16 05:41 - Radiology Exams Ordered Rad Exams-Entire Visit: Radiology Procedures Category Date Time Status ECHO W/2D AND DOPPLER [US] Routine Exams 07/03/16 14:27 Taken - Procedures and Test Procedures and Tests throughout Hospitalization: Therapy Orders & Screens 07/02/16 15:41 Oxygen NASAL CANNULA 2 lpm Comment: Diagnosis: pneumonia. Sepsis. 07/02/16 15:46 Respiratory Nebulizer Q6H Comment: Diagnosis: pneumonia. Sepsis. Name of medication?: jorge 07/02/16 19:00 Respiratory MDI BID Comment: ADVAIR 115/21 BID Diagnosis: pneumonia. Sepsis. Respiratory Nebulizer Q4H Comment: duoneb q4 Diagnosis: pneumonia. Sepsis. 07/03/16 07:00 Respiratory MDI BID Comment: SYMBICORT BID Diagnosis: pneumonia. Sepsis. Discharge Exam General Appearance: no apparent distress, alert Neurologic Exam: alert, oriented x 3, cooperative, normal mood/affect, nml cerebellar function, sensation nml, No motor deficits Skin Exam: normal color, warm, dry Eye Exam: PERRL, EOMI, eyes nml inspection Ears, Nose, Throat Exam: normal ENT inspection, pharynx normal, moist mucous membranes Neck Exam: normal inspection, non-tender, supple, full range of motion Respiratory Exam: normal breath sounds, lungs clear, No respiratory distress Cardiovascular Exam: regular rate/rhythm, normal heart sounds Gastrointestinal/Abdomen Exam: soft, No tenderness, No mass Extremity Exam: normal inspection, normal range of motion Back Exam: normal inspection, normal range of motion, No CVA tenderness, No vertebral tenderness Male Genitalia Exam: deferred Rectal Exam: deferred Final Diagnosis/Problem List - Final Discharge Diagnosis/Problem (1) COPD (chronic obstructive pulmonary disease) Current Visit: Yes Status: Resolved Assessment & Plan: Chief Complaint Diagnosis pneumonia. Sepsis. Allergies Allergy/AdvReac Type Severity Reaction Status Date / Time azithromycin [From Zithromax] AdvReac Verified 07/02/16 11:56 Vital Signs (Last 24 hours) Temp Pulse Resp BP Pulse Ox 07/05/16 07:46 97.7 F 95 H 20 124/63 96 07/05/16 06:58 88 18 96 07/05/16 04:00 97.5 F 98 H 24 115/61 96 07/05/16 03:35 97 H 18 94 L 07/04/16 23:21 98.3 F 93 H 22 116/59 93 L 07/04/16 22:46 94 H 18 93 L 07/04/16 22:00 91 L 07/04/16 19:55 98.0 F 98 H 21 114/60 96 07/04/16 18:46 92 H 24 94 L 07/04/16 16:12 97.7 F 89 20 108/59 96 07/04/16 16:00 20 07/04/16 14:36 83 18 95 07/04/16 12:00 97.8 F 95 H 20 93/51 97 07/04/16 10:24 75 18 97 Home Medications Medication Instructions Recorded Confirmed Last Taken Type Budesonide/Formoterol Fumarate 10.2 gm IH BID 07/02/16 07/02/16 07/02/16 History [Symbicort 160-4.5 Mcg Inhaler] Current Medications Generic Name Dose Route Start Last Admin Trade Name Freq PRN Reason Stop Dose Admin Acetaminophen 325 mg 07/02/16 16:16 Tylenol 325 Mg PO 08/01/16 16:15 Q4H PRN PRN TEMP >102 Albuterol/Ipratropium 3 ml 07/02/16 19:00 07/05/16 06:57 Duoneb 0.5-3 Mg/3 Ml Neb IH 08/01/16 18:59 3 ml Q4HRT GASTON Administration Enoxaparin Sodium 40 mg 07/05/16 10:00 07/05/16 09:46 Enoxaparin Sodium SQ 08/04/16 09:59 40 mg DAILY GASTON Administration Furosemide 20 mg 07/03/16 15:00 07/05/16 09:46 Lasix 20 Mg/2 Ml IV 08/02/16 14:59 20 mg DAILY GASTON Administration Levofloxacin/Dextrose 150 mls @ 150 mls/hr 07/03/16 14:30 07/04/16 08:40 Levaquin 750mg/150ml D5w IV 08/02/16 14:29 150 mls/hr Q24H GASTON Administration Piperacillin Sod/Tazobactam Sod 100 mls @ 100 mls/hr 07/03/16 18:00 07/05/16 05:37 Zosyn 3.375gm/100 Ml D5w IV 08/02/16 17:59 100 mls/hr Q6HT GASTON Administration Dextrose/Sodium Chloride 1,000 mls @ 75 mls/hr 07/03/16 14:30 07/04/16 11:37 Dextrose 5% -0.45 Nacl 1000 Ml IV 08/02/16 14:29 75 mls/hr .[id number] GASTON Administration Methylprednisolone Sodium Succinate 80 mg 07/03/16 18:00 07/05/16 05:37 Solu-Medrol 125 Mg IV 08/02/16 17:59 80 mg Q6HT GASTON Administration Pantoprazole Sodium 40 mg 07/03/16 15:00 07/05/16 09:47 Protonix 40mg Tablet PO 08/02/16 14:59 40 mg DAILY GASTON Administration Symbicort 160/4.5 0 each 07/03/16 07:00 07/05/16 07:01 PO 08/02/16 06:59 2 each BIDRT GASTON Administration Discontinued Medications Generic Name Dose Route Start Last Admin Trade Name Matthew PRN Reason Stop Dose Admin Acetaminophen 975 mg 07/02/16 12:22 07/02/16 13:21 Feverall 650 Mg IN 07/02/16 12:23 975 mg STAT ONE Administration Acetaminophen Confirm 07/02/16 12:25 Feverall 650 Mg Administered 07/02/16 12:26 Dose 650 mg .ROUTE .STK-MED ONE Acetaminophen Confirm 07/02/16 12:26 Feverall 325 Mg Administered 07/02/16 12:27 Dose 325 mg .ROUTE .STK-MED ONE Albuterol/Ipratropium 3 ml 07/02/16 11:52 07/02/16 12:25 Duoneb 0.5-3 Mg/3 Ml Neb IH 07/02/16 11:53 3 ml STAT ONE Administration Albuterol/Ipratropium Confirm 07/02/16 12:19 Duoneb 0.5-3 Mg/3 Ml Neb Administered 07/02/16 12:20 Dose 3 ml IH .STK-MED ONE Albuterol/Ipratropium Confirm 07/02/16 16:10 Duoneb 0.5-3 Mg/3 Ml Neb Administered 07/02/16 16:11 Dose 3 ml IH .STK-MED ONE Enoxaparin Sodium 68 mg 07/02/16 12:52 07/02/16 13:24 Enoxaparin Sodium SQ 07/02/16 12:53 68 mg STAT ONE Administration Enoxaparin Sodium Confirm 07/02/16 13:22 Enoxaparin Sodium Administered 07/02/16 13:23 Dose 80 mg SQ .STK-MED ONE Enoxaparin Sodium 60 mg 07/03/16 06:00 07/03/16 07:08 Enoxaparin Sodium SQ 08/02/16 05:59 60 mg Q12H GASTON Administration Enoxaparin Sodium 40 mg 07/04/16 10:00 07/04/16 08:40 Enoxaparin Sodium SQ 08/03/16 09:59 40 mg DAILY GASTON Administration Furosemide 40 mg 07/02/16 11:52 07/02/16 12:10 Lasix 40 Mg/4 Ml IV 07/02/16 11:53 40 mg STAT ONE Administration Furosemide Confirm 07/02/16 12:02 Lasix 40 Mg/4 Ml Administered 07/02/16 12:03 Dose 40 mg .ROUTE .STK-MED ONE Furosemide 20 mg 07/03/16 10:00 07/03/16 15:13 Lasix 20 Mg/2 Ml IV 08/02/16 09:59 20 mg DAILY GASTON Administration Ceftriaxone Sodium/Dextrose 50 mls @ 100 mls/hr 07/02/16 11:52 07/02/16 12:11 Rocephin 1 Gm-D5w 50 Ml Bag IV 07/02/16 12:21 100 mls/hr STAT ONE Administration Sodium Chloride 1,000 mls @ 999 mls/hr 07/02/16 11:52 07/02/16 12:12 Sodium Chloride 0.9% 1000 Ml IV 07/02/16 12:52 999 mls/hr .Q1H1M STA Administration Sodium Chloride Confirm 07/02/16 12:03 Sodium Chloride 0.9% 1000 Ml Administered 07/02/16 12:04 Dose 1,000 mls @ ud .ROUTE .STK-MED ONE Ceftriaxone Sodium/Dextrose Confirm 07/02/16 12:03 Rocephin 1 Gm-D5w 50 Ml Bag Administered 07/02/16 12:04 Dose 50 mls @ ud IV .STK-MED ONE Sodium Chloride Confirm 07/02/16 15:05 Sodium Chloride 0.9% 1000 Ml Administered 07/02/16 15:06 Dose 1,000 mls @ ud .ROUTE .STK-MED ONE Sodium Chloride Confirm 07/02/16 15:07 Sodium Chloride 0.9% 1000 Ml Administered 07/02/16 15:08 Dose 1,000 mls @ ud .ROUTE .STK-MED ONE Sodium Chloride 1,000 mls @ 999 mls/hr 07/02/16 15:11 07/02/16 15:15 Sodium Chloride 0.9% 1000 Ml IV 07/02/16 16:11 999 mls/hr .Q1H1M STA Administration Sodium Chloride 1,000 mls @ 125 mls/hr 07/02/16 16:30 07/03/16 08:05 Sodium Chloride 0.9% 1000 Ml IV 08/01/16 16:29 125 mls/hr .Q8H GASTON Administration Ceftriaxone Sodium/Dextrose 50 mls @ 100 mls/hr 07/03/16 10:00 07/03/16 10:48 Rocephin 1 Gm-D5w 50 Ml Bag IV 08/02/16 09:59 100 mls/hr DAILY GASTON Administration Potassium Chloride 100 mls @ 50 mls/hr 07/03/16 14:30 07/03/16 20:33 Potassium Chloride 20 Meq In Water 100ml IV 07/03/16 18:29 50 mls/hr Q2H GASTON Administration Methylprednisolone Sodium Succinate 125 mg 07/02/16 11:52 07/02/16 12:12 Solu-Medrol 125 Mg IV 07/02/16 11:53 125 mg STAT ONE Administration Methylprednisolone Sodium Succinate Confirm 07/02/16 12:02 Solu-Medrol 125 Mg Administered 07/02/16 12:03 Dose 125 mg .ROUTE .STK-MED ONE Methylprednisolone Sodium Succinate 100 mg 07/02/16 18:00 07/03/16 11:42 Solu-Medrol 125 Mg IV 07/03/16 12:01 100 mg Q6HT GASTON Administration Pantoprazole Sodium 40 mg 07/03/16 10:00 07/03/16 15:13 Protonix 40mg Tablet PO 08/02/16 09:59 40 mg DAILY GASTON Administration Fluticasone/Salmeterol 2 puff 07/02/16 19:00 07/02/16 19:06 Advair Hfa 115/21 Common Canister* IH 08/01/16 18:59 2 puff BIDRT GASTON Administration Intake & Output (Last 24 hours) 07/02/16 07/03/16 07/04/16 07/05/16 11:59 11:59 11:59 11:59 Intake Total 3179 2955 2321 Output Total 1000 2600 1600 Balance 2179 355 721 Weight 68.039 kg 59.874 kg 61.19 kg 61.915 kg Microbiology Results (Last 24 hours) 07/02/16 11:53 Clean Catch Midstream Urine Culture - Final <10K NORMAL SKIN KAL PROBABLE SKIN CONTAMINANT 07/02/16 12:27 Sputum - Expectorant Gram Stain - Final 07/02/16 12:27 Sputum - Expectorant Sputum Culture - Preliminary SENT TO REFERENCE LAB FOR IDENTIFICATION AND/OR SENSITIVITY. SEPARATE REPORT TO FOLLOW. 07/02/16 12:27 Sputum - Expectorant Organism ID and Sensitivity - Pending 07/02/16 12:10 Blood - Pending 07/02/16 12:10 Blood Blood Culture - Preliminary NO GROWTH TO DATE 07/02/16 12:00 Blood - Pending 07/02/16 12:00 Blood Blood Culture - Preliminary NO GROWTH TO DATE Orders (Last 24 hours) Category Date Time Status Enoxaparin Sodium [Enoxaparin Sodium] Med 07/04/16 10:00 Discontinued 40 mg SQ DAILY Enoxaparin Sodium [Enoxaparin Sodium] Med 07/05/16 10:00 Active 40 mg SQ DAILY Pulse Oximetry .overnight RT 07/04/16 11:29 Completed Patient Care Notes (Last 24 hours) 07/05/16 09:49 Respiratory Note by Anne Dow ROOM AIR RESTING SPO2 91%. ROOM AIR AMBULATION SPO2 88%. PLACED ON N/C 2LPM DURING AMBULATION SPO2 94% Initialized on 07/05/16 09:49 - END OF NOTE 07/04/16 11:40 Nursing Note by OPAL CARRILLO Contacted Dr. Sena to update on patient. Dr. Sena gave orders to keep patient one more night and have RT so overnight pulse ox study and to qualify patient for home O2. Initialized on 07/04/16 11:40 - END OF NOTE (2) Pneumonia Current Visit: Yes Status: Resolved - Discharge Discharge Date: 07/05/16 Disposition: Home, Self-Care Condition: Stable Prescriptions: New Cephalexin Mh 500 mg [Keflex 500 mg] 500 mg PO QID #30 capsule Continue Fluticasone/Salmeterol 500/50* [Advair 500-50 Diskus] 1 puff IH BID Albuterol 2.5 mg/3 ml Neb [Proventil 2.5 mg/3 ml Neb] 1 neb IH Q4H Budesonide/Formoterol Fumarate [Symbicort 160-4.5 Mcg Inhaler] 10.2 gm IH BID Instructions: Chronic Obstructive Pulmonary Disease Follow up with: HERON SENA MD [Primary Care Provider] - 1 Week Forms: Patient Portal Information
[2016-07-05 11:24] VITALS: BP 110/57; PULSE 106
--- NOTE | 2016-07-07 12:07 | ECHO ---
Transthoracic echocardiographic examination and color Doppler was done on 07/03/2016. INDICATION: Shortness of breath, increased BNP. The left ventricle was only partially visualized. Estimated global left ventricular ejection fraction of around 50%. The left ventricular thickness appears to be normal. The mitral valve and tricuspid valve are thin and opens adequately. The aortic and pulmonic valves are not well visualized. There is trace tricuspid regurgitation. The right ventricular systolic pressure of 26 mm of mercury. IMPRESSION: THIS IS A FAIRLY LIMITED STUDY WHICH PRECLUDES ADEQUATE ASSESSMENT OF INTRACARDIAC ANATOMY AND PHYSIOLOGY.
== END 2016-07-05 11:45 | disposition home or self-care (01) | DRG 190 ==
LOC: ED 11:45 → MED SURG 14:45
PROVIDERS: ADMIT General Practice; ATTEND General Practice
DX: J44.1 Chronic obstructive pulmonary disease with (acute) exacerbation (principal); J18.9 Pneumonia, unspecified organism; I50.9 Heart failure, unspecified; R91.8 Other nonspecific abnormal finding of lung field; E87.6 Hypokalemia; R53.83 Other fatigue; D64.9 Anemia, unspecified; Z72.0 Tobacco use
CPT/HCPCS: 36000; 36415; 36600; 71010; 71260; 80053; 81000; 82375; 82803; 83605; 83735; 83880; 84484; 85018; 85025; 85027; 85379; 85610; 87040; 87070; 87077; 87086; 87430; 87631; 93005; 93041; 93306; 93970; 94150; 94640; 94760; 94762; 96360; 96365; 96372; 96374; 96375; 99285; J0696; J1650; J1940; J1956; J2543; J2930; J3480